=== PATIENT | female | born 1995 | race Caucasian/White ===

== ENCOUNTER 2019-05-23 22:09 | Emergency (ER) | payer SELFPAY ==
[~2019-05-23] VITALS: Ht 160 cm; Wt 64.0 kg
[2019-05-23 22:27] VITALS: Ht 160 cm; Wt 64.0 kg
[2019-05-24 01:03] VITALS: BP 129/82
== END 2019-05-24 01:03 | disposition home or self-care (01) ==
LOC: ED 22:09
DX: R10.31 Right lower quadrant pain (principal); R10.32 Left lower quadrant pain; Z32.02 Encounter for pregnancy test, result negative
CPT/HCPCS: 36415